=== PATIENT | male | born 1985 | race Caucasian/White ===

== ENCOUNTER 2017-05-15 09:31 | Emergency (ER) | payer OTHER ==
[~2017-05-15] VITALS: Ht 167.6 cm; Wt 68.2 kg
[2017-05-15 10:08] VITALS: BP 140/96
[2017-05-15] MEDS ORDERED: IBUPROFEN 800 MG TABLET PO ONE (10:15)
[2017-05-15] MEDS ORDERED: PERTUSS(ACELL),DIPH,TET VAC/PF 0.5 ML VIAL IM ONE (10:30)
== END 2017-05-15 10:49 | disposition home or self-care (01) ==
LOC: EMS 09:33
DX: S91.302D Unspecified open wound, left foot, subsequent encounter (principal); M79.672 Pain in left foot; R03.0 Elevated blood-pressure reading, without diagnosis of hypertension; M79.89 Other specified soft tissue disorders; F17.210 Nicotine dependence, cigarettes, uncomplicated; W34.09XD Accidental discharge from other specified firearms, subsequent encounter
CPT/HCPCS: 90471; 90715; 99283